=== PATIENT | female | born 1990 | race African-American/Black ===

== ENCOUNTER 2017-02-27 15:38 | Emergency (ER) | payer OTHER ==
[~2017-02-27] VITALS: Ht 154.9 cm; Wt 76.2 kg
[~2017-02-27 15:38] MED LIST: KEFLEX250 MG ORAL; KEFLEX500 MG ORAL; MACROBID100 MG ORAL; NKM; PRENATAL 19 TA1 EAC1 PO
[2017-02-27 15:45] VITALS: BP 134/87
[2017-02-27] MEDS ORDERED: IBUPROFEN600 MG ORAL (17:01)
[2017-02-27 17:26] VITALS: BP 134/87
--- NOTE | 2017-02-27 21:31 | Emergency Room Report ---
History of Present Illness General Chief Complaint: Upper Extremity Injury Source: Patient Present Illness HPI The patient is a 27-year-old female presenting for injury to the right hand. She states that she closed car door onto her hand and injured the right middle and ring fingers today. Pain is described as a 9/10 dull ache and does not radiate. Worse with touch. She denies any numbness or tingling. She denies any bleeding. She denies other symptoms including fever, chills Allergies: Coded Allergies: No Known Allergies (Unverified , 01/17/12) Patient History Past Medical History: see triage record Pertinent Family History: none Last Menstrual Period: 12/2016 - depo Now: No Reviewed Nursing Documentation: PMH: Agreed, PSxH: Agreed Nursing Documentation-PMH Hx Asthma: Yes Hx Gastrointestinal Problems: No - GB stone removal in 2007 Review of Systems All Other Systems: negative except mentioned in HPI Physical Exam Vital Signs Date Time Temp Pulse Resp B/P Pulse Ox O2 Delivery O2 Flow Rate FiO2 02/27/17 15:45 98.1 85 16 134/87 100 Room Air Sp02 EP Interpretation: reviewed, normal General Appearance: no apparent distress, alert, GCS 15, non-toxic Head: normocephalic, atraumatic Eyes: bilateral eye PERRL, bilateral eye normal inspection Musculoskeletal: normal range of motion, tender - TTP over distal R 3rd and 4th digits Neurologic: alert, oriented x3, responsive, motor strength/tone normal, sensory intact, speech normal Psychiatric: judgement/insight normal, memory normal, mood/affect normal, no suicidal/homicidal ideation Skin: normal color, no rash, warm/dry, well hydrated Procedures Splinting Splinting : Consent: Verbal Location: R 3rd and 4th digits Pre-Made Type: metal Splint: finger Pre-Proc Neuro Vasc Exam: normal Post-Proc Neuro Vasc Exam: normal Patient Tolerated: Well Complications: None Medical Decision Making PA Attestation Dr. Rose is my supervising physician. Patient management was discussed with my supervising physician Diagnostic Impression: Primary Impression: Injury to fingernail Qualified Codes: S69.91XA - Unspecified injury of right wrist, hand and finger (s), initial encounter Additional Impression: Contusion, fingers Qualified Codes: S60.131A - Contusion of right middle finger with damage to nail, initial encounter ER Course The patient is a 27-year-old female presenting for injury to the right hand Differential diagnoses considered but not limited to: Fracture, sprain, contusion, subungual hematoma, among others Physical exam: Right third and fourth digits: Distal tenderness to palpation. No bleeding. No evidence of subungual hematoma. Sensation is intact. Full active range of motion at the DIP joint. There is a small fracture of the nail of the third digit. X-ray of the right hand is unremarkable Finger splint placed over both third and fourth digits The patient will be discharged home with a prescription for pain medication and is to follow up with primary doctor. ER precautions given Other X-Ray Diagnostic Results Other X-Ray Diagnostic Results : X-Ray ordered: R hand # of Views/Limited Vs Complete: 3 View Indication: Pain EP Interpretation: Yes Interpretation: no dislocation, no soft tissue swelling, no fractures Impression: No acute disease Interpreting ER Provider: Myself ANDRE Scribe Text I am acting as scribe for my supervising physician. My supervising physician's interpretation of the R hand xrays are there are no fractures, dislocations or soft tissue swelling. Last Vital Signs Date Time Temp Pulse Resp B/P Pulse Ox O2 Delivery O2 Flow Rate FiO2 02/27/17 17:26 98.1 16 134/87 100 Room Air 02/27/17 15:45 85 Status: improved Disposition: HOME, SELF-CARE Condition: Improved Scripts Ibuprofen* (MOTRIN*) 600 Mg Tablet 600 MG ORAL Q8H Y for For Pain, #30 TAB 0 Refills Prov: JESE TRUJILLO 02/27/17 Patient Instructions: Contusion, Nail Bed Injury Additional Instructions: I discussed my findings with the patient. All questions and concerns have been answered. Treatment and medication compliance have been addressed. I advised the patient that they need to follow up with PMD in 3-5 days. Return to ED if pain remains or worsens, numbness or tingling occurs, new rash is noticed, fever is noticed, or if needed for any reason. Patient verbalized understanding of discharge instructions. JESE TRUJILLO Feb 27, 2017 21:31
--- NOTE | 2017-02-28 09:36 | Diagnostic Imaging Report ---
Indication: PAIN Technique: 3 views right hand Comparison: none Findings: No acute fractures. No dislocations. Joint spaces are preserved. Impression: Negative
== END 2017-02-27 17:26 | disposition home or self-care (01) ==
LOC: EMR 16:18
DX: S69.91XA Unspecified injury of right wrist, hand and finger(s), initial encounter (principal); S60.131A Contusion of right middle finger with damage to nail, initial encounter; W22.8XXA Striking against or struck by other objects, initial encounter; Y93.9 Activity, unspecified; Y92.9 Unspecified place or not applicable
CPT/HCPCS: 99283

== ENCOUNTER 2018-06-21 19:22 | Emergency (ER) | payer MEDICAID, OTHER ==
[~2018-06-21] VITALS: Ht 154.9 cm; Wt 68.0 kg
[~2018-06-21 19:22] MED LIST changes: +IBUPROFEN600 MG ORAL
[2018-06-21 19:30] VITALS: BP 141/92
[2018-06-21 20:30] LABS: APPEARANCE,URINE CLEAR; BILIRUBIN, URINE NEGATIVE (NEGATIVE); COLOR,URINE PALE YELLOW; GLUCOSE, URINE (UA) NEGATIVE (NEGATIVE); KETONES,URINE NEGATIVE (NEGATIVE); LEUKOCYTE ESTERASE ,URINE NEGATIVE (NEGATIVE); NITRITE,URINE NEGATIVE (NEGATIVE); PH,URINE 8 (4.5-8.0); PROTEIN,URINE NEGATIVE (NEGATIVE); UROBILINOGEN,URINE NORMAL MG/DL (0.0-1.0)
[2018-06-21] MEDS ORDERED: Albuterol ud Inhalation HHN ONE (20:30)
[2018-06-21 20:32] LABS: EOSINOPHILS % (AUTO) 2.9 % (0.0-3.0); HEMATOCRIT 39.5 % (37.0-47.0); HEMOGLOBIN 13.1 G/DL (12.0-16.0); LYMPHOCYTES % (AUTO) 43.9 % (20.0-45.0); MEAN CORPUSCULAR VOLUME 91 FL (80-99); MONOCYTES % (AUTO) 5.1 % (1.0-10.0); NEUTROPHILS % (AUTO) 47.2 % (45.0-75.0); PLATELET COUNT 251 K/UL (150-450); RED BLOOD COUNT 4.34 M/UL (4.20-5.40); RED CELL DISTRIBUTION WIDTH 11.7 % (11.6-14.8)
[2018-06-21 20:51] LABS: ANION GAP 8 mmol/L (5-15); BLOOD UREA NITROGEN 9 mg/dL (7-18); CALCIUM 8.6 MG/DL (8.5-10.1); CARBON DIOXIDE 28 MMOL/L (21-32); CHLORIDE 103 MMOL/L (98-107); CREATININE 0.8 MG/DL (0.55-1.30); POTASSIUM 3.8 MMOL/L (3.5-5.1); SODIUM 139 MMOL/L (136-145)
[2018-06-21 21:04] LABS: ALANINE AMINOTRANSFERASE 18 U/L (12-78); ALBUMIN 3.8 G/DL (3.4-5.0); ALBUMIN/GLOBULIN RATIO 0.9 (1.0-2.7); ALKALINE PHOSPHATASE 84 U/L (46-116); ASPARTATE AMINO TRANSFERASE 15 U/L (15-37); BILIRUBIN,TOTAL 0.3 MG/DL (0.2-1.0); CKMB 0.7 NG/ML (0.0-3.6); CREATINE KINASE 87 U/L (26-308)
--- NOTE | 2018-06-21 21:19 | Emergency Room Report ---
History of Present Illness General Chief Complaint: Dizziness Source: Patient Present Illness HPI This patient states that she has felt lightheaded and dizzy. She states she feels really weird. She admits that she smoked a joint that she thought was only marijuana, however, she is concerned that possibly it was laced with something. She states when she was smoking and she started feeling weird. She also states that she has had a cough for the past 2 weeks and she is concerned that she has pneumonia. She states she has had sputum production and chills. She denies abdominal pain. She smokes tobacco and marijuana both. She denies other drug use or alcohol use. She has no other complaints. Allergies: Coded Allergies: No Known Allergies (Unverified , 01/17/12) Patient History Past Medical History: see triage record, asthma Past Surgical History: minerva Social History: Reports: smoking, drug use; Denies: alcohol use Last Menstrual Period: may 2018 Now: No - unsure Reviewed Nursing Documentation: PMH: Agreed; PSxH: Agreed Nursing Documentation-PMH Hx Asthma: Yes Hx Gastrointestinal Problems: No - GB stone removal in 2007 Review of Systems All Other Systems: negative except mentioned in HPI Physical Exam Vital Signs Date Time Temp Pulse Resp B/P (MAP) Pulse Ox O2 Delivery O2 Flow Rate FiO2 06/21/18 19:30 98.2 79 18 141/92 99 Room Air 06/21/18 20:51 21 Sp02 EP Interpretation: reviewed, normal General Appearance: no apparent distress, alert, GCS 15, non-toxic Head: normocephalic, atraumatic Eyes: bilateral eye normal inspection, bilateral eye PERRL ENT: hearing grossly normal, normal pharynx, no angioedema, normal voice Neck: full range of motion, supple/symm/no masses Respiratory: chest non-tender, no respiratory distress, no retraction, no accessory muscle use, speaking full sentences, wheezing, expiration Cardiovascular #1: regular rate, rhythm, no edema Gastrointestinal: normal bowel sounds, non tender, soft, non-distended, no guarding, no rebound Rectal: deferred Musculoskeletal: back normal, gait/station normal, normal range of motion, non- tender Neurologic: alert, oriented x3, responsive, motor strength/tone normal, sensory intact, speech normal Psychiatric: judgement/insight normal, memory normal, mood/affect normal, no suicidal/homicidal ideation Skin: normal color, no rash, warm/dry, well hydrated Medical Decision Making Diagnostic Impression: Primary Impression: Upper respiratory infection Additional Impression: Asthma exacerbation ER Course This patient has a clinical presentation consistent with asthma exacerbation. Patient has a history of asthma and has wheezing on physical exam. The patient was given albuterol treatment. The patient had significant improvement in subjective shortness of breath. The patient's lung exam improved significantly. I will also treat the patient with a course of antibiotics as this has been shown to improve the course of an asthma exacerbation. The patient's lightheadedness is likely secondary to her drug use. The patient's urine drug screen was positive for THC and cocaine. The patient was educated on the dangers of drug addiction and use. The patient was given close return precautions and followup instructions. Laboratory Tests Test 06/21/18 20:17 White Blood Count 6.0 K/UL (4.8-10.8) Red Blood Count 4.34 M/UL (4.20-5.40) Hemoglobin 13.1 G/DL (12.0-16.0) Hematocrit 39.5 % (37.0-47.0) Mean Corpuscular Volume 91 FL (80-99) Mean Corpuscular Hemoglobin 30.2 PG (27.0-31.0) Mean Corpuscular Hemoglobin Concent 33.1 G/DL (32.0-36.0) Red Cell Distribution Width 11.7 % (11.6-14.8) Platelet Count 251 K/UL (150-450) Mean Platelet Volume 6.0 FL (6.5-10.1) L Neutrophils (%) (Auto) 47.2 % (45.0-75.0) Lymphocytes (%) (Auto) 43.9 % (20.0-45.0) Monocytes (%) (Auto) 5.1 % (1.0-10.0) Eosinophils (%) (Auto) 2.9 % (0.0-3.0) Basophils (%) (Auto) 1.0 % (0.0-2.0) Urine Color Pale yellow Urine Appearance Clear Urine pH 8 (4.5-8.0) Urine Specific [place] 1.010 (1.005-1.035) Urine Protein Negative (NEGATIVE) Urine Glucose (UA) Negative (NEGATIVE) Urine Ketones Negative (NEGATIVE) Urine Blood Negative (NEGATIVE) Urine Nitrite Negative (NEGATIVE) Urine Bilirubin Negative (NEGATIVE) Urine Urobilinogen Normal MG/DL (0.0-1.0) Urine Leukocyte Esterase Negative (NEGATIVE) Urine HCG, Qualitative Negative (NEGATIVE) Sodium Level 139 MMOL/L (136-145) Potassium Level 3.8 MMOL/L (3.5-5.1) Chloride Level 103 MMOL/L (98-107) Carbon Dioxide Level 28 MMOL/L (21-32) Anion Gap 8 mmol/L (5-15) Blood Urea Nitrogen 9 mg/dL (7-18) Creatinine 0.8 MG/DL (0.55-1.30) Estimate Glomerular Filtration Rate > 60 mL/min (>60) Glucose Level 86 MG/DL (74-106) Calcium Level 8.6 MG/DL (8.5-10.1) Total Bilirubin 0.3 MG/DL (0.2-1.0) Aspartate Amino Transferase (AST) 15 U/L (15-37) Alanine Aminotransferase (ALT) 18 U/L (12-78) Alkaline Phosphatase 84 U/L (46-116) Total Creatine Kinase 87 U/L (26-308) Creatine Kinase MB 0.7 NG/ML (0.0-3.6) Creatine Kinase MB Relative Index 0.8 Troponin I 0.000 ng/mL (0.000-0.056) Total Protein 7.8 G/DL (6.4-8.2) Albumin 3.8 G/DL (3.4-5.0) Globulin 4.0 g/dL Albumin/Globulin Ratio 0.9 (1.0-2.7) L Lipase 60 U/L (73-393) L Urine Opiates Screen Negative (NEGATIVE) Urine Barbiturates Screen Negative (NEGATIVE) Phencyclidine (PCP) Screen Negative (NEGATIVE) Urine Amphetamines Screen Negative (NEGATIVE) Urine Benzodiazepines Screen Negative (NEGATIVE) Urine Cocaine Screen Positive (NEGATIVE) H Urine Marijuana (THC) Screen Positive (NEGATIVE) H EKG Diagnostic Results Rate: normal Rhythm: NSR ST Segments: no acute changes Rhythm Strip Diag. Results EP Interpretation: yes Rate: 70's Rhythm: NSR, no PVC's, no ectopy Chest X-Ray Diagnostic Results Chest X-Ray Diagnostic Results : Chest X-Ray Ordered: Yes # of Views/Limited/Complete: 1 View Indication: Other EP Interpretation: No Interpretation: no consolidation, no effusion, no pneumothorax, no acute cardiopulmonary disease Impression: No acute disease Electronically Signed by: Delphine Wright DO Last Vital Signs Date Time Temp Pulse Resp B/P (MAP) Pulse Ox O2 Delivery O2 Flow Rate FiO2 06/21/18 21:02 83 16 100 Room Air 21 06/21/18 19:30 98.2 141/92 Status: improved Disposition: HOME, SELF-CARE Condition: Improved Delphine Wright DO Jun 21, 2018 21:19
[2018-06-21 21:20] VITALS: BP 135/88
--- NOTE | 2018-06-21 22:03 | Diagnostic Imaging Report ---
EXAM: XR Chest, 1 View CLINICAL HISTORY: CP TECHNIQUE: Frontal view of the chest. COMPARISON: No relevant prior studies available. FINDINGS: Heart size likely within normal limits allowing for portable technique and slight rotation. No evidence for overt edema, consolidation or other acute cardiopulmonary findings. IMPRESSION: No acute cardiopulmonary findings.
[2018-06-21] MEDS ORDERED: ALBUTEROL SULF8.5 GM INH (22:41)
[2018-06-21] MEDS ORDERED: ZITHROMAX250 MG ORAL (22:41)
[2018-06-21 23:05] VITALS: BP 128/85
== END 2018-06-21 23:05 | disposition home or self-care (01) ==
LOC: EMR 20:02
DX: J06.9 Acute upper respiratory infection, unspecified (principal); J45.901 Unspecified asthma with (acute) exacerbation
CPT/HCPCS: 36415; 71045; 80053; 80307; 81003; 81025; 82550; 82553; 83690; 84484; 85025; 93005; 94640; 94664; 96361; 96374; 99284; J2405

== ENCOUNTER 2018-07-19 21:42 | Emergency (ER) | payer MEDICAID ==
[~2018-07-19] VITALS: Ht 154.9 cm; Wt 68.0 kg
[~2018-07-19 21:42] MED LIST changes: +ALBUTEROL SULF8.5 GM INH; +ZITHROMAX250 MG ORAL
[2018-07-19 22:11] VITALS: BP 135/70
[2018-07-19] MEDS ORDERED: Ipratropium 0.02% Inh Soln 2.5ml UD HHN ONE (22:30)
[2018-07-19] MEDS ORDERED: Norco 5mg/325mg tab ORAL ONE (22:30)
[2018-07-19] MEDS ORDERED: Albuterol ud Inhalation HHN ONE (22:30)
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
[2018-07-19] MEDS ORDERED: ALBUTEROL SULF8.5 GM INH (23:32)
[2018-07-19] MEDS ORDERED: PREDNISONE20 MG ORAL (23:32)
[2018-07-19] MEDS ORDERED: IBUPROFEN600 MG ORAL (23:32)
== END 2018-07-19 23:30 | disposition home or self-care (01) ==
LOC: EMR 23:00
DX: J45.21 Mild intermittent asthma with (acute) exacerbation (principal); S10.93XA Contusion of unspecified part of neck, initial encounter
CPT/HCPCS: 94640; 94664; 99284; J7512; 99283

== ENCOUNTER 2020-02-10 21:36 | Emergency (ER) | payer MEDICAID ==
[~2020-02-10] VITALS: Ht 154.9 cm; Wt 68.0 kg
[~2020-02-10 21:36] MED LIST changes: +CEPHALEXIN500 MG ORAL; +DICYCLOMINE HCL10 MG ORAL; +NORCO 5-325 TA1 EACH ORAL; +ONDANSETRON ODT4 MG BC; +PREDNISONE20 MG ORAL; +TYLENOL EXTRA500 MG ORAL
--- NOTE | 2020-02-10 21:48 | NUR ---
ED Nurse Note: Pt ambulated to ED from home c/o N/V and dry cough for several days. Pt is A&OX4, VSS. Denies fever at home. Pt unable to give urine at this time, pt placed oin isolation room as a precaution. Pt has not been tested for covid.
[2020-02-10 21:54] VITALS: BP 136/63
--- NOTE | 2020-02-10 22:05 | Emergency Room Report ---
History of Present Illness General Chief Complaint: Abdominal Pain Source: Patient Present Illness HPI Disclaimer: Please note that this report is being documented using [employer] technology. This can lead to erroneous entry secondary to incorrect interpretation by the dictating instrument. HPI: 29-year-old female history of asthma, chronic smoker presents with 3 days of cough, intermittent wheezing, lower abdominal pain with diarrhea. Again symptoms present for approximately 3 days. She denies any fevers or sick contacts. No recent travel. No vomiting. No urinary complaints. Lower abdominal pain is intermittent, cramping nonradiating. Chest pain with coughing. PMH: Asthma PSH: Reviewed Social Hx: Smokes cigarettes drinks occasionally denies illicit drug use Allergies: Coded Allergies: No Known Allergies (Unverified , 01/17/12) COVID-19 Screening Contact w/high risk pt: No Experienced COVID-19 symptoms?: Yes COVID-19 Testing performed [employer]: No Patient History Last Menstrual Period: NA/ on depo Reviewed Nursing Documentation: PMH: Agreed; PSxH: Agreed Nursing Documentation-PMH Hx Asthma: Yes Hx Gastrointestinal Problems: No - GB stone removal in 2007 Review of Systems All Other Systems: negative except mentioned in HPI Physical Exam Vital Signs Date Time Temp Pulse Resp B/P (MAP) Pulse Ox O2 Delivery O2 Flow Rate FiO2 02/10/20 21:41 98.6 115 18 136/63 (87) 97 Room Air Sp02 EP Interpretation: reviewed, normal General Appearance: well appearing, no apparent distress Head: normocephalic, atraumatic Eyes: bilateral eye PERRL, bilateral eye EOMI ENT: hearing grossly normal, moist mucus membranes Neck: full range of motion, supple Respiratory: lungs clear, normal breath sounds, no rhonchi, no respiratory distress, no retraction, no wheezing Cardiovascular #1: normal peripheral pulses, no murmur, tachycardia Gastrointestinal: non tender, soft, non-distended, no guarding Neurologic: alert, oriented x3, no focal defects Skin: normal color, warm/dry Medical Decision Making ER Course MDM: Parental diagnosis included but not limited to bronchitis, asthma exacerbation, COVID-19, viral syndrome, gastroenteritis Clinical course-IV laboratory studies chest x-ray EKG, COVID-19 testing sent. COVID testing was negative. Laboratory studies showed no leukocytosis. Electrolytes within normal limits. Again abdomen was nontender to palpation. As patient is having a cough with intermittent wheezing but no wheezing noted in the ER I do suspect a reactive airway component and will start patient on p.o. steroids. I did refill her albuterol inhaler. I recommended abstaining from smoking. P.o. hydration follow-up PMD. Labs - Laboratory Tests Test 02/10/20 22:00 02/10/20 23:35 White Blood Count 7.1 K/UL (4.8-10.8) Red Blood Count 3.95 M/UL (4.20-5.40) L Hemoglobin 13.3 G/DL (12.0-16.0) Hematocrit 40.8 % (37.0-47.0) Mean Corpuscular Volume 103 FL (80-99) H Mean Corpuscular Hemoglobin 33.7 PG (27.0-31.0) H Mean Corpuscular Hemoglobin Concent 32.6 G/DL (32.0-36.0) Red Cell Distribution Width 12.8 % (11.6-14.8) Platelet Count 347 K/UL (150-450) Mean Platelet Volume 5.8 FL (6.5-10.1) L Neutrophils (%) (Auto) 49.0 % (45.0-75.0) Lymphocytes (%) (Auto) 41.3 % (20.0-45.0) Monocytes (%) (Auto) 6.1 % (1.0-10.0) Eosinophils (%) (Auto) 2.2 % (0.0-3.0) Basophils (%) (Auto) 1.4 % (0.0-2.0) Sodium Level 139 MMOL/L (136-145) Potassium Level 3.1 MMOL/L (3.5-5.1) L Chloride Level 102 MMOL/L (98-107) Carbon Dioxide Level 27 MMOL/L (21-32) Anion Gap 10 mmol/L (5-15) Blood Urea Nitrogen 15 mg/dL (7-18) Creatinine 1.2 MG/DL (0.55-1.30) Estimated Glomerular Filtration Rate > 60 mL/min (>60) Glucose Level 131 MG/DL (74-106) H Calcium Level 9.5 MG/DL (8.5-10.1) Total Bilirubin 0.4 MG/DL (0.2-1.0) Aspartate Amino Transferase (AST) 16 U/L (15-37) Alanine Aminotransferase (ALT) 17 U/L (12-78) Alkaline Phosphatase 100 U/L (46-116) Total Protein 7.9 G/DL (6.4-8.2) Albumin 4.4 G/DL (3.4-5.0) Globulin 3.5 g/dL Albumin/Globulin Ratio 1.3 (1.0-2.7) Lipase 95 U/L (73-393) Urine Color Pale yellow Urine Appearance Clear Urine pH 6.5 (4.5-8.0) Urine Specific [place] 1.010 (1.005-1.035) Urine Protein 1+ (NEGATIVE) H Urine Glucose (UA) Negative (NEGATIVE) Urine Ketones Negative (NEGATIVE) Urine Blood Negative (NEGATIVE) Urine Nitrite Negative (NEGATIVE) Urine Bilirubin Negative (NEGATIVE) Urine Urobilinogen Normal MG/DL (0.0-1.0) Urine Leukocyte Esterase 1+ (NEGATIVE) H Urine RBC 0-2 /HPF (0 - 2) Urine WBC 0-2 /HPF (0 - 2) Urine Squamous Epithelial Cells Few /LPF (NONE/OCC) Urine Bacteria None /HPF (NONE) Urine HCG, Qualitative Negative (NEGATIVE) Microbiology Date/Time Source Procedure Growth Status 02/10/20 22:00 Nasopharynx SARS-CoV-2 RdRp Gene Assay - Final Complete On reevaluation: Patient sleeping comfortably Plan-discharge home follow-up PMD given return precautions Last Vital Signs Date Time Temp Pulse Resp B/P (MAP) Pulse Ox O2 Delivery O2 Flow Rate FiO2 02/10/20 21:54 115 18 Room Air 02/10/20 21:54 98.6 136/63 97 Status: improved Disposition: HOME, SELF-CARE Condition: Stable Scripts Albuterol Sulfate* (Albuterol Sulfate Hfa*) 8.5 Gm Hfa.aer.ad 2 PUFF INH Q6H, #1 INH Prov: Brody Green M.D. 02/11/20 Prednisone* (PREDNISONE*) 20 Mg Tablet 40 MG ORAL DAILY, #8 TAB Prov: Brody Green M.D. 02/11/20 Brody Green M.D. Feb 10, 2020 22:05
[2020-02-10 22:24] LABS: BASOPHILS % (AUTO) 1.4 % (0.0-2.0); EOSINOPHILS % (AUTO) 2.2 % (0.0-3.0); HEMATOCRIT 40.8 % (37.0-47.0); HEMOGLOBIN 13.3 G/DL (12.0-16.0); LYMPHOCYTES % (AUTO) 41.3 % (20.0-45.0); MEAN CORPUSCULAR VOLUME 103 FL (80-99); MONOCYTES % (AUTO) 6.1 % (1.0-10.0); PLATELET COUNT 347 K/UL (150-450); RED BLOOD COUNT 3.95 M/UL (4.20-5.40); RED CELL DISTRIBUTION WIDTH 12.8 % (11.6-14.8); WHITE BLOOD COUNT 7.1 K/UL (4.8-10.8)
[2020-02-10 22:34] LABS: ANION GAP 10 mmol/L (5-15); BLOOD UREA NITROGEN 15 mg/dL (7-18); CALCIUM 9.5 MG/DL (8.5-10.1); CARBON DIOXIDE 27 MMOL/L (21-32); CHLORIDE 102 MMOL/L (98-107); CREATININE 1.2 MG/DL (0.55-1.30); POTASSIUM 3.1 MMOL/L (3.5-5.1); SODIUM 139 MMOL/L (136-145)
[2020-02-10 22:38] LABS: ALANINE AMINOTRANSFERASE 17 U/L (12-78); ALBUMIN 4.4 G/DL (3.4-5.0); ALBUMIN/GLOBULIN RATIO 1.3 (1.0-2.7); ALKALINE PHOSPHATASE 100 U/L (46-116); ASPARTATE AMINO TRANSFERASE 16 U/L (15-37); BILIRUBIN,TOTAL 0.4 MG/DL (0.2-1.0)
[2020-02-10 23:45] LABS: APPEARANCE,URINE CLEAR; BILIRUBIN, URINE NEGATIVE (NEGATIVE); COLOR,URINE PALE YELLOW; GLUCOSE, URINE (UA) NEGATIVE (NEGATIVE); KETONES,URINE NEGATIVE (NEGATIVE); LEUKOCYTE ESTERASE ,URINE 1+ (NEGATIVE); NITRITE,URINE NEGATIVE (NEGATIVE); PH,URINE 6.5 (4.5-8.0); PROTEIN,URINE 1+ (NEGATIVE); UROBILINOGEN,URINE NORMAL MG/DL (0.0-1.0)
[2020-02-11] MEDS ORDERED: PREDNISONE20 MG ORAL (00:09)
[2020-02-11] MEDS ORDERED: ALBUTEROL SULF8.5 G1 INH (00:09)
[2020-02-11 00:20] VITALS: BP 141/68
--- NOTE | 2020-02-11 00:20 | NUR ---
ER DISCHARGE NOTE: Patient is cleared to be discharged per ERMD, pt is aox4, on room air, with stable vital signs. pt was given dc and prescription instructions, pt was able to verbalize understanding, pt id band and iv site removed without complications. pt is able to ambulate with steady gait. pt took all belongings.
--- NOTE | 2020-02-11 16:16 | Diagnostic Imaging Report ---
Indication: Chest pain Technique: One view of the chest Comparison: 06/21/2018 Findings: Lungs and pleural spaces are clear. Heart size is normal. No significant change Impression: No acute process
== END 2020-02-11 00:20 | disposition home or self-care (01) ==
LOC: EMR 22:03
DX: R05 Cough (principal); R06.2 Wheezing; R10.30 Lower abdominal pain, unspecified; R19.7 Diarrhea, unspecified; F17.210 Nicotine dependence, cigarettes, uncomplicated; Z90.49 Acquired absence of other specified parts of digestive tract
CPT/HCPCS: 36415; 71045; 80053; 81003; 81025; 83690; 85025; 93005; 96360; J7030; J7512; U0002; Z7502; 99284

== ENCOUNTER → 2020-03-31 | Emergency (ER) | payer MEDICAID ==
[~2020-03-31] VITALS: Ht 30.5 cm; Wt 0.5 kg
[~2020-03-31] MED LIST changes: +ALBUTEROL SULF8.5 G1 INH; +Clindamycin 150mg cap ONE; +Clindamycin 150mg cap ORAL ONE; +HYDROcodone/Acetamin 5/325 tab ONE
--- NOTE | 2020-03-31 05:01 | Emergency Room Report ---
History of Present Illness General Source: Patient Present Illness HPI This a 30-year-old female with no significant past medical history. She presents with chief complaint of left foot and ankle pain. Onset for last 2 days. No trauma that she noted. Now is swollen and red. Worse to walk on it. Better to elevated. Pain is 9 out of 10. No fever chills but no nausea no vomiting but no drainage. Allergies: Coded Allergies: No Known Allergies (Unverified , 01/17/12) COVID-19 Screening Contact w/high risk pt: No Experienced COVID-19 symptoms?: Yes Patient History Past Medical History: see triage record, old chart reviewed Past Surgical History: none Pertinent Family History: none Social History: Denies: drug use Now: No Immunizations: other Reviewed Nursing Documentation: PMH: Agreed; PSxH: Agreed Nursing Documentation-PMH Hx Asthma: Yes Hx Gastrointestinal Problems: No - GB stone removal in 2007 Review of Systems Eye: Denies: eye pain, blurred vision ENT: Denies: ear pain, nose congestion, throat swelling Respiratory: Denies: cough, shortness of breath Cardiovascular: Denies: chest pain, palpitations Gastrointestinal: Denies: abdominal pain, diarrhea, nausea, vomiting Musculoskeletal: Reports: joint pain, joint swelling; Denies: back pain Skin: Denies: rash Neurological: Denies: headache, numbness Endocrine: Denies: increased thirst, increased urine Hematologic/Lymphatic: Denies: easy bruising All Other Systems: negative except mentioned in HPI Physical Exam Sp02 EP Interpretation: reviewed, normal General Appearance: well appearing, no apparent distress, alert Head: normocephalic, atraumatic Eyes: bilateral eye PERRL, bilateral eye EOMI ENT: hearing grossly normal, normal pharynx Neck: full range of motion, supple, no meningismus Respiratory: chest non-tender, lungs clear, normal breath sounds Cardiovascular #1: regular rate, rhythm, no murmur Gastrointestinal: normal bowel sounds, non tender, no mass, no organomegaly, no bruit, non-distended Musculoskeletal: back normal, other - Left ankle: On the lateral malleolus, there is edema, erythema and warmth. Tender to palpation. No crepitance. Pulse normal. Decreased range of motion because of pain. There is small abrasion over the distal lower extremity just above the ankle. Psychiatric: mood/affect normal Medical Decision Making Diagnostic Impression: Primary Impression: Cellulitis of left ankle ER Course Patient with left ankle pain. She has a cellulitis. Tinnitus is probably secondary to the small abrasion. No evidence of any abscess. She still has range of motion. I doubt this is septic joint. Dose of antibiotics given here. I also gave patient crutches. Patient be discharged home on clindamycin and Pierce. Other X-Ray Diagnostic Results Other X-Ray Diagnostic Results : X-Ray ordered: Ankles x-rays, left # of Views/Limited Vs Complete: 3 View Indication: Pain EP Interpretation: Yes Interpretation: no dislocation, no soft tissue swelling, no fractures Impression: No acute disease Electronically Signed by: Bo Martell MD Status: improved Disposition: HOME, SELF-CARE Condition: Stable Referrals: [facility],REFERRING (PCP) Additional Instructions: Elevate leg. Use crutches as needed. Ice pack to the area. Follow-up in 2 days for recheck. Return sooner if worse. Bo Martell MD Mar 31, 2020 05:01
--- NOTE | 2020-03-31 14:12 | Diagnostic Imaging Report ---
Indication: Ankle pain Technique: 3 views of the left ankle Comparison: None Findings: Bone mineralization within normal limits. No acute fractures identified. Ankle mortise intact on these nonstress views. Imaged portions of the hindfoot unremarkable. No ankle joint effusion. No radiopaque foreign body. There is soft tissue swelling about the lateral malleolus. IMPRESSION: Soft tissue swelling about the lateral malleolus. No acute fracture identified. Ankle mortise intact.
== END | disposition home or self-care (01) ==
LOC: EMR 04:56
DX: L03.116 Cellulitis of left lower limb (principal); Z90.49 Acquired absence of other specified parts of digestive tract
CPT/HCPCS: 73610; Z7502; 99283

== ENCOUNTER 2020-06-01 22:59 | Emergency (ER) | payer MEDICAID ==
[~2020-06-01] VITALS: Ht 154.9 cm; Wt 68.0 kg
[~2020-06-01 22:59] MED LIST changes: -Clindamycin 150mg cap ONE; -Clindamycin 150mg cap ORAL ONE; -HYDROcodone/Acetamin 5/325 tab ONE
--- NOTE | 2020-06-01 23:19 | Emergency Room Report ---
History of Present Illness General Chief Complaint: Abdominal Pain Source: Patient Present Illness HPI Disclaimer: Please note that this report is being documented using [employer]ide[employer] technology. This can lead to erroneous entry secondary to incorrect interpretation by the dictating instrument. HPI: 30-year-old female presents for evaluation of abdominal pain. Arrives by EMS. Reports drinking alcohol earlier today and now reports epigastric and left upper quadrant pain that radiates around to the back and up into the chest. Reports baseline cough. Denies fever or chills. Tested negative for COVID-19 2 weeks ago. Pain is constant. Reports nausea. Denies vomiting. Reports loose stools for 3 days. Denies melena or hematochezia. Denies dysuria hematuria. Her menstrual periods are regular due to Depo shots. Denies vaginal bleeding or vaginal discharge. Did not take anything prior to arrival. No exacerbating or relieving factors noted. PMH: Denied PSH: Cholecystectomy. Allergies: Denied Social Hx: Alcohol use Allergies: Coded Allergies: No Known Allergies (Unverified , 01/17/12) COVID-19 Screening Contact w/high risk pt: No Experienced COVID-19 symptoms?: No COVID-19 Testing performed [employer] MUFFLER [employer]TER: No Patient History Last Menstrual Period: unk Nursing Documentation-PMH Hx Asthma: Yes Hx Gastrointestinal Problems: No - GB stone removal in 2007 Review of Systems All Other Systems: negative except mentioned in HPI Physical Exam Vital Signs Date Time Temp Pulse Resp B/P (MAP) Pulse Ox O2 Delivery O2 Flow Rate FiO2 06/01/20 22:56 97.9 89 18 140/87 (104) 99 Room Air General: Awake and alert, no acute distress HEENT: NC/AT. EOMI. Cardiovascular: RRR. S1 and S2 normal. No murmur appreciated Resp: Normal work of breathing. No cough, wheezing or crackles appreciated Abdomen: Abdomen is soft, nondistended. Obese abdomen. Tender in the epigastrium and left upper quadrant. No guarding, no rebound. Belly is soft and no peritoneal signs. No tenderness in the lower quadrants. No rebound. Skin: Intact. No abrasions, laceration or rash over the exposed skin MSK: Normal tone and bulk. Moving all extremities. No obvious deformity. Neuro: Awake and alert. Mentating appropriately. Medical Decision Making Diagnostic Impression: Primary Impression: Hypokalemia Additional Impressions: COVID-19 virus detected Drug abuse ER Course This is a 30-year-old female brought in for evaluation of abdominal pain. Differential includes was not limited to gastritis, gastroenteritis, pancreatitis, hepatitis, IBS, inflammatory bowel disease, diverticulitis, appendicitis, UTI, nephrolithiasis, pyelonephritis, viral syndrome, COVID-19, pneumonia, bronchitis among others. Belly is benign, no sign of peritonitis. EKG nonischemic and overall unremarkable. Chest x-ray is clear, no evidence of infiltrate. She has tested positive for COVID-19 and is in isolation. Oxygen 100%, no fever, otherwise well-appearing. Labs including lipase returned within normal limits. Potassium is slightly low at 2.9 she received repletion will be discharged with supplements. Suspect her abdominal symptoms are secondary to COVID-19 infection. Will treat with azithromycin. QTc within normal limits per patient's sex. Urinalysis shows 1+ leukocyte esterase, 2-4 white cells, many squamous cells, sediment and bacteria. Believe this was a contaminated sample and may not represent a true urinary tract infection. Patient denies urinary symptoms at this time. Will send for culture and patient will already be treated with azithromycin. Patient is eating and drinking at bedside. Able to hydrate orally and stable for outpatient follow-up. Instructed to isolate from others, have repeat testing once symptoms are resolved and to return with new or worsening symptoms. She understands and agrees with this treatment plan. Laboratory Tests Test 06/01/20 21:20 06/02/20 02:43 White Blood Count 7.2 K/UL (4.8-10.8) Red Blood Count 4.27 M/UL (4.20-5.40) Hemoglobin 14.0 G/DL (12.0-16.0) Hematocrit 43.6 % (37.0-47.0) Mean Corpuscular Volume 102 FL (80-99) H Mean Corpuscular Hemoglobin 32.9 PG (27.0-31.0) H Mean Corpuscular Hemoglobin Concent 32.2 G/DL (32.0-36.0) Red Cell Distribution Width 12.6 % (11.6-14.8) Platelet Count 315 K/UL (150-450) Mean Platelet Volume 6.2 FL (6.5-10.1) L Neutrophils (%) (Auto) 53.1 % (45.0-75.0) Lymphocytes (%) (Auto) 37.2 % (20.0-45.0) Monocytes (%) (Auto) 6.5 % (1.0-10.0) Eosinophils (%) (Auto) 2.1 % (0.0-3.0) Basophils (%) (Auto) 1.1 % (0.0-2.0) Sodium Level 136 MMOL/L (136-145) Potassium Level 2.9 MMOL/L (3.5-5.1) L Chloride Level 101 MMOL/L (98-107) Carbon Dioxide Level 28 MMOL/L (21-32) Anion Gap 7 mmol/L (5-15) Blood Urea Nitrogen 13 mg/dL (7-18) Creatinine 1.0 MG/DL (0.55-1.30) Estimated Glomerular Filtration Rate > 60 mL/min (>60) Glucose Level 97 MG/DL (74-106) Calcium Level 8.8 MG/DL (8.5-10.1) Total Bilirubin 0.8 MG/DL (0.2-1.0) Aspartate Amino Transferase (AST) 36 U/L (15-37) Alanine Aminotransferase (ALT) 38 U/L (12-78) Alkaline Phosphatase 73 U/L (46-116) Troponin I 0.000 ng/mL (0.000-0.056) Total Protein 7.9 G/DL (6.4-8.2) Albumin 4.4 G/DL (3.4-5.0) Globulin 3.5 g/dL Albumin/Globulin Ratio 1.3 (1.0-2.7) Lipase 55 U/L (73-393) L Urine Color Yellow Urine Appearance Cloudy Urine pH 6 (4.5-8.0) Urine Specific [place] 1.020 (1.005-1.035) Urine Protein 2+ (NEGATIVE) H Urine Glucose (UA) Negative (NEGATIVE) Urine Ketones 2+ (NEGATIVE) H Urine Blood Negative (NEGATIVE) Urine Nitrite Negative (NEGATIVE) Urine Bilirubin Negative (NEGATIVE) Urine Urobilinogen 4 MG/DL (0.0-1.0) H Urine Leukocyte Esterase 1+ (NEGATIVE) H Urine RBC 0-2 /HPF (0 - 2) Urine WBC 2-4 /HPF (0 - 2) Urine Squamous Epithelial Cells Many /LPF (NONE/OCC) H Urine Amorphous Sediment Moderate /LPF (NONE) H Urine Bacteria Moderate /HPF (NONE) H Urine HCG, Qualitative Negative (NEGATIVE) Urine Opiates Screen Negative (NEGATIVE) Urine Barbiturates Screen Negative (NEGATIVE) Phencyclidine (PCP) Screen Negative (NEGATIVE) Urine Amphetamines Screen Negative (NEGATIVE) Urine Benzodiazepines Screen Negative (NEGATIVE) Urine Cocaine Screen Positive (NEGATIVE) H Urine Marijuana (THC) Screen Positive (NEGATIVE) H Microbiology Date/Time Source Procedure Growth Status 06/01/20 23:20 Nasopharynx SARS-CoV-2 RdRp Gene Assay - Final Complete EKG Diagnostic Results Troponin ordered: Yes When was troponin ordered?: Jun 01, 2020 EKG Time: 23:17 Rate: normal Rhythm: NSR ST Segments: no acute changes Other Impression Sinus rhythm, normal axis, normal intervals, no ST segment changes Rhythm Strip Diag. Results Rhythm Strip Time: 23:17 EP Interpretation: yes Rate: 80s Rhythm: NSR, no PVC's, no ectopy Chest X-Ray Diagnostic Results Chest X-Ray Diagnostic Results : Chest X-Ray Ordered: Yes # of Views/Limited/Complete: 1 View Indication: Other - Cough EP Interpretation: Yes Interpretation: no consolidation, no effusion, no pneumothorax, no acute cardiopulmonary disease Impression: No acute disease Electronically Signed by: Electronically signed by Dr. Chad Lira MD Last Vital Signs Date Time Temp Pulse Resp B/P (MAP) Pulse Ox O2 Delivery O2 Flow Rate FiO2 06/01/20 22:56 97.9 89 18 140/87 (104) 99 Room Air Disposition: HOME, SELF-CARE Condition: Stable Scripts Azithromycin* (ZITHROMAX*) 250 Mg Tablet 250 MG ORAL DAILY, #6 TAB 0 Refills Take two tables once daily for 1 day, then one tablet once daily for 4 days. Prov: Chad Lira MD 06/02/20 Potassium Chloride* (K-DUR*) 20 Meq Tab.er.prt 20 MEQ ORAL DAILY for SUPPLEMENT, #7 TAB 0 Refills Prov: Chad Lira MD 06/02/20 Chad Lira MD Jun 01, 2020 23:19
[2020-06-01 23:20] VITALS: BP 140/87
--- NOTE | 2020-06-01 23:20 | NUR ---
ED Nurse Note: Patient brought into ED by [id number] for c/o abdominal pain that radiates up into her chest for the past two days. She also reports N/V and diarrhea. Nonproductive cough also noted. She is currently breathing normal and unlabored with stable oxygen saturation. AAOX4. Patient in bed, safety measures met.
[2020-06-01 23:42] LABS: BASOPHILS % (AUTO) 1.1 % (0.0-2.0); EOSINOPHILS % (AUTO) 2.1 % (0.0-3.0); HEMATOCRIT 43.6 % (37.0-47.0); LYMPHOCYTES % (AUTO) 37.2 % (20.0-45.0); MEAN CORPUSCULAR VOLUME 102 FL (80-99); MONOCYTES % (AUTO) 6.5 % (1.0-10.0); NEUTROPHILS % (AUTO) 53.1 % (45.0-75.0); PLATELET COUNT 315 K/UL (150-450); RED BLOOD COUNT 4.27 M/UL (4.20-5.40); RED CELL DISTRIBUTION WIDTH 12.6 % (11.6-14.8); WHITE BLOOD COUNT 7.2 K/UL (4.8-10.8)
[2020-06-01 23:52] LABS: ANION GAP 7 mmol/L (5-15); BLOOD UREA NITROGEN 13 mg/dL (7-18); CALCIUM 8.8 MG/DL (8.5-10.1); CARBON DIOXIDE 28 MMOL/L (21-32); CHLORIDE 101 MMOL/L (98-107); POTASSIUM 2.9 MMOL/L (3.5-5.1); SODIUM 136 MMOL/L (136-145)
[2020-06-01 23:56] LABS: ALANINE AMINOTRANSFERASE 38 U/L (12-78); ALBUMIN 4.4 G/DL (3.4-5.0); ALBUMIN/GLOBULIN RATIO 1.3 (1.0-2.7); ALKALINE PHOSPHATASE 73 U/L (46-116); ASPARTATE AMINO TRANSFERASE 36 U/L (15-37); BILIRUBIN,TOTAL 0.8 MG/DL (0.2-1.0)
[2020-06-02] MEDS ORDERED: POTASSIUM CHLO20 ME1 ORAL (00:04)
[2020-06-02] MEDS ORDERED: ZITHROMAX250 MG ORAL (00:15)
--- NOTE | 2020-06-02 00:30 | NUR ---
ED Nurse Note: Patient provided with sandwhich and juice; tolerated well.
[2020-06-02 02:15] VITALS: BP 129/85
--- NOTE | 2020-06-02 02:15 | NUR ---
ED Nurse Note: Patient is sleeping at this time. No respiratory distress noted. Vital signs stable.
[2020-06-02 02:56] LABS: APPEARANCE,URINE CLOUDY; BILIRUBIN, URINE NEGATIVE (NEGATIVE); GLUCOSE, URINE (UA) NEGATIVE (NEGATIVE); KETONES,URINE 2+ (NEGATIVE); LEUKOCYTE ESTERASE ,URINE 1+ (NEGATIVE); NITRITE,URINE NEGATIVE (NEGATIVE); PH,URINE 6 (4.5-8.0); PROTEIN,URINE 2+ (NEGATIVE); UROBILINOGEN,URINE 4 MG/DL (0.0-1.0)
[2020-06-02 03:03] LABS: COLOR,URINE YELLOW
--- NOTE | 2020-06-02 05:20 | NUR ---
ED Nurse Note: Patient provided with another sandwhich and more juice.
[2020-06-02 05:30] VITALS: BP 134/78
--- NOTE | 2020-06-02 15:24 | Cardiology Report ---
APPROVED REPORT EKG Measurement Heart [id number] <Conclusion> Normal sinus rhythm Possible Left atrial enlargement Nonspecific T wave abnormality Prolonged QT Abnormal ECG
--- NOTE | 2020-06-02 16:37 | Diagnostic Imaging Report ---
Indication: Cough Technique: XRAY Chest 1v Comparison: 02/10/2020 Findings: Heart size and mediastinal contours are within normal limits for AP technique. There is no focal airspace consolidation, pneumothorax or pleural effusion. Osseous structures demonstrate no acute abnormality. Impression: No radiographic evidence of acute cardiopulmonary disease.
== END 2020-06-02 05:37 | disposition home or self-care (01) ==
LOC: EDBD 22:59 → EMR 23:19
DX: U07.1 COVID-19 (principal); E87.6 Hypokalemia; F14.10 Cocaine abuse, uncomplicated; F12.10 Cannabis abuse, uncomplicated; J45.909 Unspecified asthma, uncomplicated; Z90.49 Acquired absence of other specified parts of digestive tract
CPT/HCPCS: 36415; 71045; 80053; 80307; 81003; 81025; 83690; 84484; 85025; 87086; 93005; 96361; 96374; J2405; J7030; U0002; Z7502; 99284; J8499

== ENCOUNTER 2020-06-24 07:12 | Emergency (ER) | payer MEDICAID ==
[~2020-06-24] VITALS: Ht 154.9 cm; Wt 68.0 kg
[~2020-06-24 07:12] MED LIST changes: +POTASSIUM CHLO20 ME1 ORAL
[2020-06-24 07:20] VITALS: BP 141/84
[2020-06-24] MEDS ORDERED: IBUPROFEN600 M1 ORAL (07:42)
--- NOTE | 2020-06-24 07:47 | Emergency Room Report ---
History of Present Illness General Chief Complaint: Sore Throat Source: Patient, Medical Record Present Illness HPI 30-year-old female, tested Covid +3 weeks ago, here with 2 days of sore throat. Patient says that she has been around multiple sick contacts over the past several days. She says that multiple family members at home have also had sore throat and nasal congestion. Says that over the past 2 days she has been having worsening sore throat. Denies headache, vision changes, fevers, chills, chest pain, palpitations, back pain, abdominal pain, nausea, vomiting, diarrhea, dysuria, voice changes, difficulty swallowing. Says "my breathing has been a little funny since I tested positive." This has been chronic and has not acutely worsened. No leg swelling. No long car rides or plane rides. Allergies: Coded Allergies: No Known Allergies (Unverified , 01/17/12) COVID-19 Screening Contact w/high risk pt: Yes Experienced COVID-19 symptoms?: Yes COVID-19 Testing performed [employer]: Yes COVID-19 Screening: Positive COVID-19 COVID-19 Testing Source: 06/01/20 Patient History Last Menstrual Period: 05/30/20 Now: No Nursing Documentation-[facility] Past Medical History: No History, Except For Hx Asthma: Yes Hx Gastrointestinal Problems: No - GB stone removal in 2007 Review of Systems All Other Systems: negative except mentioned in HPI Physical Exam Vital Signs Date Time Temp Pulse Resp B/P (MAP) Pulse Ox O2 Delivery O2 Flow Rate FiO2 06/24/20 07:17 98.2 99 20 141/84 (103) 96 Room Air Sp02 EP Interpretation: reviewed, normal General Appearance: no apparent distress, alert, non-toxic Head: normocephalic, atraumatic Eyes: bilateral eye normal inspection, bilateral eye PERRL ENT: hearing grossly normal, no angioedema, normal voice, other - Moderate posterior oropharyngeal erythema with bilateral tonsillar swelling. Neck: full range of motion, supple/symm/no masses Respiratory: chest non-tender, lungs clear, normal breath sounds, speaking full sentences Cardiovascular #1: regular rate, rhythm, no edema Cardiovascular #2: 2+ carotid (R), 2+ carotid (L), 2+ radial (R), 2+ radial (L), 2+ dorsalis pedis (R), 2+ dorsalis pedis (L) Gastrointestinal: normal bowel sounds, non tender, soft, non-distended, no guarding, no rebound Rectal: deferred Genitourinary: normal inspection, no CVA tenderness Musculoskeletal: back normal, normal range of motion, calf tenderness, gait/station normal, non-tender Neurologic: alert, motor strength/tone normal, oriented x3, sensory intact, responsive, speech normal Psychiatric: judgement/insight normal, memory normal, mood/affect normal, no suicidal/homicidal ideation Reflexes: 3+ bicep (R), 3+ bicep (L), 3+ tricep (R), 3+ tricep (L), 3+ knee (R), 3+ knee (L) Lymphatic: no adenopathy Medical Decision Making Diagnostic Impression: Primary Impression: Sore throat ER Course 30-year-old female here with sore throat. Patient had moderate posterior oropharyngeal erythema on physical examination. She had tonsillar swelling without any exudates. Low likelihood for strep pharyngitis. She was given a dose of Decadron in the emergency department and prescription for ibuprofen. Told to come back to the emergency department with worsening symptoms. Discharged in stable condition. Last Vital Signs Date Time Temp Pulse Resp B/P (MAP) Pulse Ox O2 Delivery O2 Flow Rate FiO2 06/24/20 07:17 98.2 99 20 141/84 (103) 96 Room Air Disposition: HOME, SELF-CARE Condition: Stable Scripts Ibuprofen* (MOTRIN*) 600 Mg Tablet 600 MG ORAL Q6H PRN for FOR PAIN, #20 TAB 0 Refills Prov: Keyshawn Pelletier M.D. 06/24/20 Referrals: NOT CHOSEN [facility]/,REFERRING (PCP) [facility] Patient Instructions: Laryngitis Additional Instructions: Please follow-up with your primary care doctor in the next 1 to 3 days to discuss this emergency department visit and for reevaluation. If you have any new or worsening symptoms please return to the emergency department for reeva luation. If your shortness of breath continues to worsen please return to the emergency department. Keyshawn Pelletier M.D. Jun 24, 2020 07:47
[2020-06-24 08:20] VITALS: BP 138/86
--- NOTE | 2020-06-24 14:14 | Diagnostic Imaging Report ---
Indication: Reason For Exam: SOB Technique: Single AP view of the chest. Comparison: Chest radiograph dated 06/01/2020 Findings: The cardiomediastinal silhouette is unchanged in appearance. No new airspace consolidation. No pneumothorax or pleural effusion. No acute osseous abnormality. IMPRESSION: No radiographic evidence of acute cardiopulmonary process.
== END 2020-06-24 08:20 | disposition home or self-care (01) ==
LOC: EMR 07:36
DX: J02.9 Acute pharyngitis, unspecified (principal); J45.909 Unspecified asthma, uncomplicated; K82.9 Disease of gallbladder, unspecified; Z86.19 Personal history of other infectious and parasitic diseases
CPT/HCPCS: 71045; J8540; Z7502; 99283